=== PATIENT | male | born 1950 | race African-American/Black ===

== ENCOUNTER 2019-02-24 12:58 | Emergency (ER) | payer OTHER ==
[2019-02-24 13:13] VITALS: BP 165/107; PULSE 75; TEMP 97.5; BMI 17.1
--- NOTE | 2019-02-24 13:43 | PDOC ---
History of Present Illness - General Chief Complaint: Chest Pain Stated Complaint: CHEST PAIN Time Seen by Provider: 02/24/19 13:40 History Source: Patient Exam Limitations: No Limitations - History of Present Illness Initial Comments: 02/24/19 13:42 HPI: 68yo M 1/2ppd smoker with PMH HTN, presenting from the 5th floor with non- pleuritic chest pain while visiting his mother. Patient recalls long-time intermittent dull left chest pains, non-exertional, spontaneously relieved without intervention, no aggravating or alleviating factors identified. 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 Has smoked his whole like, 1/2PPD, patient reports that he has tried to quit but with his mother's medical conditions, insurance, etc "It feels like I'm standing in one first trying to put out 50 others" and finds relief with smoking. Denies SOB, cough, fevers, chills, recent illnesses. No recent travel or immobilizations, no leg swelling or pain. Patient is re-directable but perseverates on mother's health problems and other stressors, downplays his symptoms. All: NKDA Meds per chart PMH as above PSH denies SHx: Smokes 1/2PPD most of his life Past History - Travel Traveled outside of the country in the last 30 days: No Close contact w/someone who was outside of country & ill: No - Past Medical History Allergies/Adverse Reactions: Allergies Allergy/AdvReac Type Severity Reaction Status Date / Time No Known Allergies Allergy Verified 02/24/19 13:13 COPD: No - Psycho Social/Smoking Cessation Hx Smoking History: Current every day smoker Number of Cigarettes Smoked Daily: 10 Information on smoking cessation initiated: No Hx Alcohol Use: Yes Drug/Substance Use Hx: No Review of Systems - Review of Systems Able to Perform ROS?: Yes Is the patient limited Yemeni proficient: Yes Constitutional: No: Chills, Diaphoresis, Fever HEENTM: No: Recent change in vision, Nose Congestion, Throat Pain Respiratory: Yes: See HPI, Shortness of Breath. No: Cough, Wheezing Cardiac (ROS): Yes: See HPI, Chest Pain. No: Edema, Irregular Heart Rate, Palpitations, Syncope, Chest Tightness ABD/GI: No: Constipated, Diarrhea, Nausea, Vomiting : No: Burning, Dysuria, Frequency Musculoskeletal: No: Back Pain, Muscle Pain, Muscle Weakness, Neck Pain Integumentary: No: Dryness, Erythema, Pruritus, Rash Neurological: No: Headache, Numbness, Tingling, Weakness Psychiatric: Yes: Stressors, Sleep Pattern Change, Emotional Problems, Mood Swings. No: Frequent Crying, Change in Appetite Hematologic/Lymphatic: No: Anemia, Blood Clots, Easy Bleeding All Other Systems: Reviewed and Negative *Physical Exam - Vital Signs Last Vital Signs Temp Pulse Resp BP Pulse Ox 97.5 F L 75 16 165/107 H 98 02/24/19 13:00 02/24/19 13:00 02/24/19 13:00 02/24/19 13:00 02/24/19 13:00 - Physical Exam 02/24/19 15:02 Vitals reviewed GEN: Well appearing, NAD, comfortable. AAOx3. HEENT: NC/AT, EOMI, PERRLA. No facial asymmetry. Moist mucous membranes. Normal voice. Supple neck w/ FROM. CV: S1/S2, RRR, no m/r/g LUNG: CTAB, no wheezes, crackles, rales, rhonchi. GI: Soft, ndnt, +BS, no guarding, no rebound. No masses. Neg CVAT b/l. EXTREMITIES: 2+ distal pulses. No LE edema. No obvious deformities of all extremities. SKIN: Warm, dry, no rashes appreciated. PSYCH: Sad with normal affect. NEURO: Moving all extremities well. Heart Score/ECG Review - History History: Slightly suspicious - Electrocardiogram EKG: Normal - Age Age: >/= 65 - Risk Factors Risk Factors Heart Score: Yes Hx Hypertension Based on the list above the patient has:: 1-2 risk factors - Troponin Troponin: </= normal limit - Score Heart Score - Total: 3 ED Treatment Course - LABORATORY CBC & Chemistry Diagram: 02/24/19 13:48 02/24/19 13:48 Medical Decision Making - Medical Decision Making 02/24/19 14:17 68 yo M presenting with intermittent chronic chest pain with acute episode occuring while visiting mother on 5th floor. Reassuring for pains similar to prior. HEART Score 3. DDX includes but it not limited to: r/o ACS, depression, URI, PNA, malignancy, PTX, less likely PE. - CBC, CMP, Cardiac Profile - CXR, EKG 02/24/19 14:26 EKbpm, NSR, normal axis, normal intervals, no ischemic changes 02/24/19 14:53 CXR without condolidation, infiltrate, effusions, pneumothorax or bony pathology. Patient requesting to leave AMA to visit his mother upstairs. Patient requested to leave AMA. Patient is determined to be of sound mind and reasoning. The patient fully understands the care they are refusing and the risks associated with leaving before complete medical evaluation as explained by the medical team. The patient has been provided with a discharge summary, return precautions, and the reassurance that the Emergency Department will resume workup if the patient changes their mind. Immediate primary care follow up has been urged. 02/24/19 15:02 02/24/19 16:22 Patient left department before signing the AMA forms Discharge - Discharge Information Problems reviewed: Yes Clinical Impression/Diagnosis: Chest pain Qualifiers: Chest pain type: unspecified Qualified Code(s): R07.9 - Chest pain, unspecified Condition: Stable Disposition: AGAINST MEDICAL ADVICE - Follow up/Referral - Patient Discharge Instructions Patient Printed Discharge Instructions: DI for Atypical Chest Pain Additional Instructions: You are leaving against medical advice and refusing evaluation and treatment of chest pain. It is essential that you follow up with your primary care physician within the next 1-2 days. Please return to the Emergency Department if you change your mind and wish to continue evaluation of your symptoms or if you experience any of the following: - worsening of your symptoms - chest pain - shortness of breath and/or difficulty breathing - seizure - changes in behavior - lightheadedness, and/or dizziness - severe abdominal pain - severe or bloody vomiting - bloody diarrhea - inability to eat or drink - anything that concerns you - Post Discharge Activity
[2019-02-24 14:10] LABS: BASO % 1.3 % (0-2.0); EOS % 5.2 % (0-4.5); HEMATOCRIT 41.1 % (35.4-49); LYMPH % 34.6 % (8-40); MEAN PLT VOLUME 7.9 fl (7.5-11.1); MONO % 9.1 % (3.8-10.2); NEUT % 49.8 % (42.8-82.8); PLATELET COUNT 152 K/MM3 (134-434); RBC 4.11 M/mm3 (4.00-5.60); RDW 13.7 % (11.9-15.9); WHITE BLOOD COUNT 3.5 K/mm3 (4.0-10.0)
[2019-02-24 14:42] LABS: ALBUMIN 4.1 g/dl (3.4-5.0); BILIRUBIN,TOTAL 0.6 mg/dL (0.2-1); BLOOD UREA NITROGEN 18.4 mg/dL (7-18); CALCIUM 9.9 mg/dL (8.5-10.1); CREATININE 1.1 mg/dL (0.55-1.3); POTASSIUM 4.6 mmol/L (3.5-5.1)
--- NOTE | 2019-02-24 15:31 | PDOC ---
Documentation entered by Ashley Main SCRIBE, acting as scribe for Melanie Jacques MD. Melanie Jacques MD: This documentation has been prepared by the Etelvina lopez Brenda, SCRIBE, under my direction and personally reviewed by me in its entirety. I confirm that the documentation accurately reflects all work, treatment, procedures, and medical decision making performed by me. Attending Attestation - Resident Resident Name: [email or web address] - ED Attending Attestation I have performed the following: I have examined & evaluated the patient, The case was reviewed & discussed with the resident, I agree w/resident's findings & plan, Exceptions are as noted - HPI HPI: 02/24/19 14:06 The patient is a 68 year old male with a PMH of HTN and daily cigarette use who presents to the ED for left sided chest pain/discomfort, while seeing his mother , who is admitted upstairs in the hospital. No fevers or chills No shortness of breath No chest wall tenderness No nausea, vomiting Allergies: NKA Social Hx: Current everyday smoker PCP: [facility] 02/24/19 15:29 - Physicial Exam PE: 02/24/19 14:08 GENERAL: (+) Thin The patient is in no acute distress. ENT: Ears normal, nares patent, oropharynx clear without exudates. Moist mucous membranes. NECK: Normal range of motion, supple, no nuchal rigidity LUNGS: Breath sounds equal, clear to auscultation bilaterally. No wheezes, and no crackles. HEART: Regular rate and rhythm, normal S1 and S2 without murmur, rub or gallop. ABDOMEN: Soft, nontender, normoactive bowel sounds. No guarding, no rebound. No masses palpable. EXTREMITIES: Normal range of motion, no edema. NEUROLOGICAL: Cranial nerves II through XII grossly intact. Normal speech. No focal neurological deficits. SKIN: Warm, Dry, normal turgor, no rashes or lesions noted. - Medical Decision Making 02/24/19 15:27 Differential includes cardiac ischemia, pe, asthma exacerbation, pneumonia, pneumothorax, pleural effusion, costochondritis, pericarditis, GERD. Laboratory Tests 02/24/19 02/24/19 02/24/19 13:48 13:48 13:48 Hgb 14.0 Hct 41.1 BUN 18.4 H Creatinine 1.1 Creatine Kinase 87 Troponin I < 0.02 EKG: Twelve-lead EKG was performed and reviewed by me. There is normal sinus rhythm with a normal rate of 69 bpm. The axis is normal. The intervals are normal. There are no ST or T wave abnormalities. Impression: Normal twelve-lead EKG Patient states he is unable to stay in the hospital. He needs to see his mother who is upstairs and her vp digital marketing social media and crm. Patient is leaving the emergency department AGAINST MEDICAL ADVICE I have taken his phone number in order to call him in case his troponin is positive Clinical impression: Chest pain, initial presentation Note: The patient insists on leaving the emergency dept and is signing out against medical advice. The patient understands the risks and complications that may result from the refusal of medical care and admission which includes and permanent disability. The patient has the mental capacity of understanding the risks of refusing care and is capable of making an informed decision. The patient was instructed to return to the emergency department should he change his mind regarding medical care or should his condition worsen. The patient signed the Against Medical Advice form.
--- NOTE | 2019-02-25 12:59 | EKG ---
Test Reason : Blood Pressure : / mmHG Vent. Rate : 069 BPM Atrial Rate : 069 BPM P-R Int : 156 ms QRS Dur : 084 ms QT Int : 402 ms P-R-T Axes : 075 -09 059 degrees QTc Int : 430 ms NORMAL SINUS RHYTHM POSSIBLE LEFT ATRIAL ENLARGEMENT LEFT VENTRICULAR HYPERTROPHY ABNORMAL ECG NO PREVIOUS ECGS AVAILABLE Confirmed by MD Gerardo, All ([id number]) on 02/25/2019 12:58:52 PM Referred By: Confirmed By:All Carrillo MD
== END 2019-02-24 15:40 | disposition left against medical advice (07) ==
LOC: JER 12:58
DX: R07.9 Chest pain, unspecified (principal); I10 Essential (primary) hypertension; F17.210 Nicotine dependence, cigarettes, uncomplicated
CPT/HCPCS: 36415; 71046-TC-FY; 80053; 82550; 84484; 85025; 93005; 93010; 99282-25

== ENCOUNTER 2021-09-07 16:12 | Inpatient (IN) | payer OTHER ==
[2021-09-07 18:37] LABS: BASO % 0.5 % (0-2.0); EOS % 10.5 % (0-4.5); HEMATOCRIT 38.5 % (35.4-49); HEMOGLOBIN 12.9 GM/dL (11.7-16.9); LYMPH % 18.4 % (8-40); MCH 33.9 pg (25.7-33.7); MCHC 33.6 g/dl (32.0-35.9); MEAN CELL VOLUME 100.9 fl (80-96); MEAN PLT VOLUME 8.9 fl (7.5-11.1); MONO % 10.4 % (3.8-10.2); NEUT % 60.2 % (42.8-82.8); PLATELET COUNT 139 10^3/uL (134-434); RBC 3.82 M/mm3 (4.00-5.60); RDW 13.6 % (11.9-15.9); WHITE BLOOD COUNT 5.9 K/mm3 (4.0-10.0)
[2021-09-07] MEDS ORDERED: methylPREDNISolone NA SUCC 125 MG/2 ML VIAL IVPUSH ONE (18:43)
[2021-09-07] MEDS ORDERED: AZITHROMYCIN IVPB 500 MG in DEXTROSE 5%-WATER - 250 ML IVPB ONE (18:43)
[2021-09-07] MEDS ORDERED: methylPREDNISolone NA SUCC 125 MG/2 ML VIAL ONE (18:49)
[2021-09-07] MEDS ORDERED: AZITHROMYCIN IVPB 500 MG/250 ML BAG IVPB ONE (18:50)
[2021-09-07] MEDS ORDERED: ALBUTEROL SO4 2.5/IPRATROPIUM 0.5 INH SOL 3 ML VIAL.NEB. NEB ONE (18:51)
[2021-09-07 18:56] LABS: ALBUMIN 3.6 g/dl (3.4-5.0); BLOOD UREA NITROGEN 21.6 mg/dL (7-18); CALCIUM 9.9 mg/dL (8.5-10.1)
[2021-09-07 18:59] LABS: CREATININE 1.2 mg/dL (0.55-1.3)
[2021-09-07 19:01] LABS: BILIRUBIN,TOTAL 0.5 mg/dL (0.2-1); TOT PROT 6.9 g/dl (6.4-8.2)
[2021-09-07 19:04] LABS: N-TERMINAL BNP 174.5 pg/ml (5-125)
[2021-09-07] MEDS: ALBUTEROL SO4 2.5/IPRATROPIUM 0.5 INH SOL 3 ML VIAL.NEB. NEB SCH ×3 (19:10→20:05)
[2021-09-08] MEDS ORDERED: FUROSEMIDE 40 MG/4 ML INJECTABLE VIAL IVPUSH ONE (00:44)
[2021-09-08] MEDS ORDERED: methylPREDNISolone NA SUCC 40 MG/1 ML VIAL ONE (01:36)
[2021-09-08] MEDS ORDERED: FUROSEMIDE 40 MG/4 ML INJECTABLE VIAL ONE (01:36)
[2021-09-08] MEDS ORDERED: ALBUTEROL SO4 2.5/IPRATROPIUM 0.5 INH SOL 3 ML VIAL.NEB. NEB ONE (01:36)
[2021-09-08] MEDS: methylPREDNISolone NA SUCC 40 MG/1 ML VIAL IVPUSH SCH ×3 (01:48→18:35)
[2021-09-08] MEDS: ALBUTEROL SO4 2.5/IPRATROPIUM 0.5 INH SOL 3 ML VIAL.NEB. NEB SCH ×5 (01:48→20:11)
[2021-09-08 08:30] LABS: BASO % 0.2 % (0-2.0); HEMATOCRIT 39.8 % (35.4-49); HEMOGLOBIN 13.2 GM/dL (11.7-16.9); LYMPH % 12.8 % (8-40); MCH 33.7 pg (25.7-33.7); MCHC 33.1 g/dl (32.0-35.9); MEAN CELL VOLUME 101.8 fl (80-96); MEAN PLT VOLUME 9.2 fl (7.5-11.1); MONO % 1.3 % (3.8-10.2); NEUT % 85.7 % (42.8-82.8); PLATELET COUNT 145 10^3/uL (134-434); RBC 3.91 M/mm3 (4.00-5.60); RDW 13.5 % (11.9-15.9)
[2021-09-08 08:36] LABS: ALBUMIN 3.7 g/dl (3.4-5.0); CALCIUM 9.9 mg/dL (8.5-10.1); MAGNESIUM 1.7 mg/dL (1.8-2.4)
[2021-09-08 08:37] LABS: BLOOD UREA NITROGEN 26.8 mg/dL (7-18)
[2021-09-08 08:39] LABS: PHOSPHOROUS 3.2 mg/dL (2.5-4.9)
[2021-09-08 08:40] LABS: CHOLESTEROL 179 mg/dL (50-200); CREATININE 1.4 mg/dL (0.55-1.3)
[2021-09-08 08:41] LABS: BILIRUBIN,TOTAL 0.5 mg/dL (0.2-1); TOT PROT 7.4 g/dl (6.4-8.2); TRIGLYCERIDES 38 mg/dL (0-150)
[2021-09-08 08:42] LABS: LDL CHOLESTEROL (ONLY SJRH) 72 mg/dL (5-100)
[2021-09-08 08:43] LABS: HDL CHOLESTEROL 106 mg/dL (40-60)
[2021-09-08] MEDS: ENOXAPARIN NA (PORCINE) 40 MG/0.4 ML DISP.SYRIN SQ SCH (09:50)
[2021-09-08] MEDS: AZITHROMYCIN 250 MG TABLET PO SCH (09:50)
[2021-09-08] MEDS: NICOTINE 7 MG/24 HOURS TOPICAL PATCH TD SCH (13:14)
[2021-09-08] MEDS: BUDESONIDE/FORMETEROL FUMARATE 160/4.5 mcg INHALER IH SCH ×2 (13:14→21:46)
[2021-09-09] MEDS: methylPREDNISolone NA SUCC 40 MG/1 ML VIAL IVPUSH SCH ×3 (01:37→18:45)
[2021-09-09] MEDS: ALBUTEROL SO4 2.5/IPRATROPIUM 0.5 INH SOL 3 ML VIAL.NEB. NEB SCH ×4 (07:40→20:05)
[2021-09-09] MEDS: ENOXAPARIN NA (PORCINE) 40 MG/0.4 ML DISP.SYRIN SQ SCH (10:32)
[2021-09-09] MEDS: AZITHROMYCIN 250 MG TABLET PO SCH (10:33)
[2021-09-09] MEDS: BUDESONIDE/FORMETEROL FUMARATE 160/4.5 mcg INHALER IH SCH ×2 (10:33→22:01)
[2021-09-09] MEDS: NICOTINE 7 MG/24 HOURS TOPICAL PATCH TD SCH (10:33)
[2021-09-09 10:47] LABS: BASO % 0.1 % (0-2.0); HEMATOCRIT 37.1 % (35.4-49); HEMOGLOBIN 12.4 GM/dL (11.7-16.9); LYMPH % 6.7 % (8-40); MCH 34.2 pg (25.7-33.7); MCHC 33.6 g/dl (32.0-35.9); MEAN CELL VOLUME 101.9 fl (80-96); MEAN PLT VOLUME 9.3 fl (7.5-11.1); NEUT % 90.2 % (42.8-82.8); PLATELET COUNT 146 10^3/uL (134-434); RBC 3.64 M/mm3 (4.00-5.60); RDW 13.5 % (11.9-15.9); WHITE BLOOD COUNT 8.8 K/mm3 (4.0-10.0)
[2021-09-09 11:20] LABS: CALCIUM 9.9 mg/dL (8.5-10.1)
[2021-09-09 11:21] LABS: ALBUMIN 3.5 g/dl (3.4-5.0); BLOOD UREA NITROGEN 34.8 mg/dL (7-18); MAGNESIUM 1.9 mg/dL (1.8-2.4)
[2021-09-09 11:22] LABS: PHOSPHOROUS 3.9 mg/dL (2.5-4.9)
[2021-09-09 11:23] LABS: TOT PROT 6.6 g/dl (6.4-8.2)
[2021-09-09 11:24] LABS: BILIRUBIN,TOTAL 0.3 mg/dL (0.2-1); CREATININE 1.3 mg/dL (0.55-1.3)
[2021-09-10] MEDS: methylPREDNISolone NA SUCC 40 MG/1 ML VIAL IVPUSH SCH ×3 (01:59→17:28)
[2021-09-10] MEDS: ALBUTEROL SO4 2.5/IPRATROPIUM 0.5 INH SOL 3 ML VIAL.NEB. NEB SCH ×4 (08:00→20:07)
[2021-09-10] MEDS: ENOXAPARIN NA (PORCINE) 40 MG/0.4 ML DISP.SYRIN SQ SCH (09:22)
[2021-09-10] MEDS: AZITHROMYCIN 250 MG TABLET PO SCH (09:22)
[2021-09-10] MEDS: NICOTINE 7 MG/24 HOURS TOPICAL PATCH TD SCH (09:23)
[2021-09-10] MEDS: BUDESONIDE/FORMETEROL FUMARATE 160/4.5 mcg INHALER IH SCH ×2 (09:37→21:50)
[2021-09-11] MEDS: methylPREDNISolone NA SUCC 40 MG/1 ML VIAL IVPUSH SCH ×3 (02:17→17:02)
[2021-09-11] MEDS: ALBUTEROL SO4 2.5/IPRATROPIUM 0.5 INH SOL 3 ML VIAL.NEB. NEB SCH ×4 (08:00→20:39)
[2021-09-11] MEDS: NICOTINE 7 MG/24 HOURS TOPICAL PATCH TD SCH (09:15)
[2021-09-11] MEDS: ENOXAPARIN NA (PORCINE) 40 MG/0.4 ML DISP.SYRIN SQ SCH (09:15)
[2021-09-11] MEDS: AZITHROMYCIN 250 MG TABLET PO SCH (09:15)
[2021-09-11] MEDS: BUDESONIDE/FORMETEROL FUMARATE 160/4.5 mcg INHALER IH SCH ×2 (09:15→21:28)
[2021-09-11] MEDS: FAMOTIDINE 20 MG TABLET PO SCH (13:08)
[2021-09-12] MEDS: methylPREDNISolone NA SUCC 40 MG/1 ML VIAL IVPUSH SCH ×3 (02:08→17:37)
[2021-09-12] MEDS: ALBUTEROL SO4 2.5/IPRATROPIUM 0.5 INH SOL 3 ML VIAL.NEB. NEB SCH ×4 (07:15→20:05)
[2021-09-12] MEDS ORDERED: ALBUTEROL SO4 HFA INHALER IH PRN (08:48)
[2021-09-12] MEDS: NICOTINE 7 MG/24 HOURS TOPICAL PATCH TD SCH (11:13)
[2021-09-12] MEDS: ENOXAPARIN NA (PORCINE) 40 MG/0.4 ML DISP.SYRIN SQ SCH (11:13)
[2021-09-12] MEDS: FAMOTIDINE 20 MG TABLET PO SCH (11:13)
[2021-09-12] MEDS: BUDESONIDE/FORMETEROL FUMARATE 160/4.5 mcg INHALER IH SCH ×2 (11:13→21:04)
[2021-09-12 15:58] VITALS: BMI 15.5
[2021-09-13] MEDS: methylPREDNISolone NA SUCC 40 MG/1 ML VIAL IVPUSH SCH ×3 (02:19→21:41)
[2021-09-13] MEDS: ALBUTEROL SO4 2.5/IPRATROPIUM 0.5 INH SOL 3 ML VIAL.NEB. NEB SCH ×4 (09:16→20:50)
[2021-09-13 09:33] LABS: HEMATOCRIT 36.2 % (35.4-49); HEMOGLOBIN 12.3 GM/dL (11.7-16.9); LYMPH % 7.2 % (8-40); MCH 34.2 pg (25.7-33.7); MEAN CELL VOLUME 100.8 fl (80-96); MEAN PLT VOLUME 8.6 fl (7.5-11.1); MONO % 6.6 % (3.8-10.2); NEUT % 86.2 % (42.8-82.8); PLATELET COUNT 160 10^3/uL (134-434); RBC 3.59 M/mm3 (4.00-5.60); RDW 13.6 % (11.9-15.9); WHITE BLOOD COUNT 6.6 K/mm3 (4.0-10.0)
[2021-09-13] MEDS: ENOXAPARIN NA (PORCINE) 40 MG/0.4 ML DISP.SYRIN SQ SCH (09:43)
[2021-09-13] MEDS: NICOTINE 7 MG/24 HOURS TOPICAL PATCH TD SCH (09:43)
[2021-09-13] MEDS: FAMOTIDINE 20 MG TABLET PO SCH (09:43)
[2021-09-13] MEDS: BUDESONIDE/FORMETEROL FUMARATE 160/4.5 mcg INHALER IH SCH ×2 (09:43→21:40)
[2021-09-13 10:01] LABS: IRON SERUM 76 ug/dL (50-175); TOTAL IRON BINDING CAPACITY 296 ug/dL (250-450)
[2021-09-13 10:11] LABS: BLOOD UREA NITROGEN 37.9 mg/dL (7-18)
[2021-09-13 10:14] LABS: PHOSPHOROUS 3.6 mg/dL (2.5-4.9)
[2021-09-14] MEDS: ALBUTEROL SO4 2.5/IPRATROPIUM 0.5 INH SOL 3 ML VIAL.NEB. NEB SCH ×4 (08:00→19:51)
[2021-09-14 09:52] LABS: BASO % 0.1 % (0-2.0); HEMATOCRIT 38.7 % (35.4-49); LYMPH % 9.7 % (8-40); MCH 33.9 pg (25.7-33.7); MCHC 33.4 g/dl (32.0-35.9); MEAN CELL VOLUME 101.5 fl (80-96); MEAN PLT VOLUME 8.5 fl (7.5-11.1); NEUT % 83.2 % (42.8-82.8); PLATELET COUNT 185 10^3/uL (134-434); RBC 3.82 M/mm3 (4.00-5.60); RDW 13.8 % (11.9-15.9); WHITE BLOOD COUNT 7.6 K/mm3 (4.0-10.0)
[2021-09-14 10:22] LABS: CALCIUM 9.8 mg/dL (8.5-10.1)
[2021-09-14 10:23] LABS: ALBUMIN 3.3 g/dl (3.4-5.0); MAGNESIUM 2.1 mg/dL (1.8-2.4)
[2021-09-14 10:25] LABS: PHOSPHOROUS 3.8 mg/dL (2.5-4.9)
[2021-09-14] MEDS: methylPREDNISolone NA SUCC 40 MG/1 ML VIAL IVPUSH SCH ×2 (10:26→21:57)
[2021-09-14] MEDS: FAMOTIDINE 20 MG TABLET PO SCH (10:26)
[2021-09-14] MEDS: ENOXAPARIN NA (PORCINE) 40 MG/0.4 ML DISP.SYRIN SQ SCH (10:26)
[2021-09-14 10:27] LABS: BILIRUBIN,TOTAL 0.3 mg/dL (0.2-1); TOT PROT 6.4 g/dl (6.4-8.2)
[2021-09-14] MEDS: BUDESONIDE/FORMETEROL FUMARATE 160/4.5 mcg INHALER IH SCH ×2 (10:29→21:58)
[2021-09-14] MEDS: NICOTINE 7 MG/24 HOURS TOPICAL PATCH TD SCH (11:44)
[2021-09-14 21:07] LABS: GLIADIN ANTIBODY IGA 9 units (0-19); GLIADIN ANTIBODY IGG 2 units (0-19); TRANSGLUTAMINASE IGG < 2 U/mL (0-5)
[2021-09-15] MEDS: ALBUTEROL SO4 2.5/IPRATROPIUM 0.5 INH SOL 3 ML VIAL.NEB. NEB SCH ×4 (07:50→20:46)
[2021-09-15 08:07] LABS: CARCINOEMBRYONIC ANTIGEN 2.6 ng/mL (0.0-4.7)
[2021-09-15] MEDS: ENOXAPARIN NA (PORCINE) 40 MG/0.4 ML DISP.SYRIN SQ SCH (09:23)
[2021-09-15] MEDS: methylPREDNISolone NA SUCC 40 MG/1 ML VIAL IVPUSH SCH (09:23)
[2021-09-15] MEDS: FAMOTIDINE 20 MG TABLET PO SCH (09:23)
[2021-09-15] MEDS: BUDESONIDE/FORMETEROL FUMARATE 160/4.5 mcg INHALER IH SCH ×2 (09:24→21:25)
[2021-09-15] MEDS: NICOTINE 7 MG/24 HOURS TOPICAL PATCH TD SCH (11:36)
[2021-09-15 11:53] LABS: BASO % 0.2 % (0-2.0); EOS % 0.1 % (0-4.5); HEMATOCRIT 38.8 % (35.4-49); HEMOGLOBIN 13.1 GM/dL (11.7-16.9); LYMPH % 6.8 % (8-40); MCH 34.2 pg (25.7-33.7); MCHC 33.7 g/dl (32.0-35.9); MEAN CELL VOLUME 101.3 fl (80-96); MEAN PLT VOLUME 8.5 fl (7.5-11.1); MONO % 5.9 % (3.8-10.2); PLATELET COUNT 200 10^3/uL (134-434); RBC 3.83 M/mm3 (4.00-5.60); RDW 13.4 % (11.9-15.9); WHITE BLOOD COUNT 8.4 K/mm3 (4.0-10.0)
[2021-09-15 12:26] LABS: BLOOD UREA NITROGEN 34.7 mg/dL (7-18)
[2021-09-15 12:27] LABS: ALBUMIN 3.7 g/dl (3.4-5.0); CALCIUM 10.2 mg/dL (8.5-10.1); MAGNESIUM 2.2 mg/dL (1.8-2.4)
[2021-09-15 12:30] LABS: CREATININE 0.9 mg/dL (0.55-1.3); PHOSPHOROUS 3.9 mg/dL (2.5-4.9)
[2021-09-15 12:31] LABS: BILIRUBIN,TOTAL 0.6 mg/dL (0.2-1)
[2021-09-15] MEDS ORDERED: SENNOSIDES 8.6MG TABLET (FP) PO PRN (15:20)
[2021-09-15] MEDS: POLYETHYLENE GLYCOL (HEALTHYLAX) 3350 17 GM PACKET PO SCH (15:43)
[2021-09-15] MEDS: DOCUSATE SODIUM 100 MG CAPSULE (FP) PO SCH (21:24)
[2021-09-16] MEDS: ALBUTEROL SO4 2.5/IPRATROPIUM 0.5 INH SOL 3 ML VIAL.NEB. NEB SCH ×4 (08:10→20:03)
[2021-09-16] MEDS: POLYETHYLENE GLYCOL (HEALTHYLAX) 3350 17 GM PACKET PO SCH (09:00)
[2021-09-16] MEDS: FAMOTIDINE 20 MG TABLET PO SCH (12:30)
[2021-09-16] MEDS: predniSONE 20 MG TABLET (UD) PO SCH (12:30)
[2021-09-16] MEDS: NICOTINE 7 MG/24 HOURS TOPICAL PATCH TD SCH (12:32)
[2021-09-16] MEDS: BUDESONIDE/FORMETEROL FUMARATE 160/4.5 mcg INHALER IH SCH ×2 (12:37→21:38)
[2021-09-16] MEDS ORDERED: FLUCONAZOLE 100 MG TABLET (UD) PO ONE (12:54)
[2021-09-16 15:27] LABS: BASO % 0.2 % (0-2.0); EOS % 0.7 % (0-4.5); HEMATOCRIT 39.3 % (35.4-49); HEMOGLOBIN 13.3 GM/dL (11.7-16.9); LYMPH % 22.4 % (8-40); MCHC 33.8 g/dl (32.0-35.9); MEAN CELL VOLUME 100.7 fl (80-96); MEAN PLT VOLUME 8.2 fl (7.5-11.1); MONO % 13.5 % (3.8-10.2); NEUT % 63.2 % (42.8-82.8); PLATELET COUNT 194 10^3/uL (134-434); RDW 13.9 % (11.9-15.9); WHITE BLOOD COUNT 4.8 K/mm3 (4.0-10.0)
[2021-09-16 16:13] LABS: CALCIUM 10.1 mg/dL (8.5-10.1)
[2021-09-16 16:14] LABS: ALBUMIN 3.2 g/dl (3.4-5.0); BLOOD UREA NITROGEN 34.1 mg/dL (7-18); MAGNESIUM 2.2 mg/dL (1.8-2.4)
[2021-09-16 16:17] LABS: PHOSPHOROUS 3.8 mg/dL (2.5-4.9)
[2021-09-16 16:19] LABS: BILIRUBIN,TOTAL 0.6 mg/dL (0.2-1); TOT PROT 6.5 g/dl (6.4-8.2)
[2021-09-16] MEDS: DOCUSATE SODIUM 100 MG CAPSULE (FP) PO SCH (21:40)
[2021-09-17] MEDS: ALBUTEROL SO4 2.5/IPRATROPIUM 0.5 INH SOL 3 ML VIAL.NEB. NEB SCH ×4 (08:23→20:14)
[2021-09-17 10:20] LABS: BASO % 0.3 % (0-2.0); EOS % 0.4 % (0-4.5); HEMATOCRIT 36.5 % (35.4-49); HEMOGLOBIN 12.1 GM/dL (11.7-16.9); LYMPH % 15.8 % (8-40); MCH 33.8 pg (25.7-33.7); MCHC 33.2 g/dl (32.0-35.9); MEAN PLT VOLUME 8.6 fl (7.5-11.1); MONO % 6.5 % (3.8-10.2); PLATELET COUNT 212 10^3/uL (134-434); RBC 3.58 M/mm3 (4.00-5.60); RDW 13.7 % (11.9-15.9); WHITE BLOOD COUNT 8.2 K/mm3 (4.0-10.0)
[2021-09-17 10:55] LABS: BLOOD UREA NITROGEN 41.7 mg/dL (7-18); CALCIUM 9.7 mg/dL (8.5-10.1)
[2021-09-17 10:56] LABS: ALBUMIN 3.2 g/dl (3.4-5.0); MAGNESIUM 2.2 mg/dL (1.8-2.4)
[2021-09-17 10:59] LABS: CREATININE 1.1 mg/dL (0.55-1.3)
[2021-09-17 11:00] LABS: BILIRUBIN,TOTAL 0.4 mg/dL (0.2-1); TOT PROT 6.1 g/dl (6.4-8.2)
[2021-09-17] MEDS: NICOTINE 7 MG/24 HOURS TOPICAL PATCH TD SCH (11:17)
[2021-09-17] MEDS: FLUCONAZOLE 100 MG TABLET (UD) PO SCH (11:17)
[2021-09-17] MEDS: POLYETHYLENE GLYCOL (HEALTHYLAX) 3350 17 GM PACKET PO SCH (11:18)
[2021-09-17] MEDS: FAMOTIDINE 20 MG TABLET PO SCH (11:18)
[2021-09-17] MEDS: predniSONE 20 MG TABLET (UD) PO SCH (11:18)
[2021-09-17] MEDS: ENOXAPARIN NA (PORCINE) 40 MG/0.4 ML DISP.SYRIN SQ SCH (11:18)
[2021-09-17] MEDS: BUDESONIDE/FORMETEROL FUMARATE 160/4.5 mcg INHALER IH SCH ×2 (11:19→21:49)
[2021-09-17 12:04] LABS: HIV INTERPRETATION NEGATIVE (NEGATIVE)
[2021-09-17] MEDS: DOCUSATE SODIUM 100 MG CAPSULE (FP) PO SCH (21:48)
[2021-09-18] MEDS: ALBUTEROL SO4 2.5/IPRATROPIUM 0.5 INH SOL 3 ML VIAL.NEB. NEB SCH ×4 (07:32→19:57)
[2021-09-18] MEDS: FLUCONAZOLE 100 MG TABLET (UD) PO SCH (09:29)
[2021-09-18] MEDS: NICOTINE 7 MG/24 HOURS TOPICAL PATCH TD SCH (09:29)
[2021-09-18] MEDS: predniSONE 20 MG TABLET (UD) PO SCH (09:30)
[2021-09-18] MEDS: POLYETHYLENE GLYCOL (HEALTHYLAX) 3350 17 GM PACKET PO SCH (09:30)
[2021-09-18] MEDS: ENOXAPARIN NA (PORCINE) 40 MG/0.4 ML DISP.SYRIN SQ SCH (09:30)
[2021-09-18] MEDS: FAMOTIDINE 20 MG TABLET PO SCH (09:31)
[2021-09-18] MEDS: BUDESONIDE/FORMETEROL FUMARATE 160/4.5 mcg INHALER IH SCH ×2 (09:31→21:10)
[2021-09-18] MEDS: DOCUSATE SODIUM 100 MG CAPSULE (FP) PO SCH (21:10)
[2021-09-19] MEDS: ALBUTEROL SO4 2.5/IPRATROPIUM 0.5 INH SOL 3 ML VIAL.NEB. NEB SCH ×4 (07:37→20:34)
[2021-09-19 08:55] LABS: BASO % 0.2 % (0-2.0); EOS % 0.4 % (0-4.5); HEMATOCRIT 36.4 % (35.4-49); HEMOGLOBIN 12.2 GM/dL (11.7-16.9); LYMPH % 15.9 % (8-40); MCH 33.9 pg (25.7-33.7); MCHC 33.4 g/dl (32.0-35.9); MEAN CELL VOLUME 101.6 fl (80-96); MONO % 9.3 % (3.8-10.2); NEUT % 74.2 % (42.8-82.8); PLATELET COUNT 225 10^3/uL (134-434); RBC 3.59 M/mm3 (4.00-5.60); RDW 13.7 % (11.9-15.9); WHITE BLOOD COUNT 10.4 K/mm3 (4.0-10.0)
[2021-09-19 09:30] LABS: ALBUMIN 3.5 g/dl (3.4-5.0); BLOOD UREA NITROGEN 35.2 mg/dL (7-18); CALCIUM 10.3 mg/dL (8.5-10.1)
[2021-09-19 09:33] LABS: CREATININE 1.1 mg/dL (0.55-1.3)
[2021-09-19 09:35] LABS: BILIRUBIN,TOTAL 0.3 mg/dL (0.2-1); TOT PROT 6.4 g/dl (6.4-8.2)
[2021-09-19] MEDS: ENOXAPARIN NA (PORCINE) 40 MG/0.4 ML DISP.SYRIN SQ SCH (10:34)
[2021-09-19] MEDS: FLUCONAZOLE 100 MG TABLET (UD) PO SCH (10:34)
[2021-09-19] MEDS: predniSONE 20 MG TABLET (UD) PO SCH (10:34)
[2021-09-19] MEDS: FAMOTIDINE 20 MG TABLET PO SCH (10:34)
[2021-09-19] MEDS: BUDESONIDE/FORMETEROL FUMARATE 160/4.5 mcg INHALER IH SCH ×2 (10:35→21:47)
[2021-09-19] MEDS: NICOTINE 7 MG/24 HOURS TOPICAL PATCH TD SCH (10:35)
[2021-09-19] MEDS: POLYETHYLENE GLYCOL (HEALTHYLAX) 3350 17 GM PACKET PO SCH (10:36)
[2021-09-19] MEDS: DOCUSATE SODIUM 100 MG CAPSULE (FP) PO SCH (21:47)
[2021-09-20] MEDS: ALBUTEROL SO4 2.5/IPRATROPIUM 0.5 INH SOL 3 ML VIAL.NEB. NEB SCH ×4 (08:31→20:23)
[2021-09-20 08:38] LABS: BASO % 0.3 % (0-2.0); EOS % 0.1 % (0-4.5); HEMATOCRIT 35.5 % (35.4-49); LYMPH % 12.3 % (8-40); MCH 34.2 pg (25.7-33.7); MCHC 33.7 g/dl (32.0-35.9); MEAN CELL VOLUME 101.6 fl (80-96); MONO % 8.5 % (3.8-10.2); NEUT % 78.8 % (42.8-82.8); PLATELET COUNT 219 10^3/uL (134-434); RBC 3.49 M/mm3 (4.00-5.60); RDW 13.7 % (11.9-15.9); WHITE BLOOD COUNT 10.3 K/mm3 (4.0-10.0)
[2021-09-20 09:01] LABS: ALBUMIN 3.3 g/dl (3.4-5.0); CALCIUM 10.2 mg/dL (8.5-10.1); MAGNESIUM 2.2 mg/dL (1.8-2.4)
[2021-09-20 09:02] LABS: BLOOD UREA NITROGEN 30.9 mg/dL (7-18)
[2021-09-20 09:04] LABS: PHOSPHOROUS 3.4 mg/dL (2.5-4.9)
[2021-09-20 09:06] LABS: BILIRUBIN,TOTAL 0.6 mg/dL (0.2-1); TOT PROT 6.4 g/dl (6.4-8.2)
[2021-09-20] MEDS: predniSONE 20 MG TABLET (UD) PO SCH (09:32)
[2021-09-20] MEDS: FLUCONAZOLE 100 MG TABLET (UD) PO SCH (09:33)
[2021-09-20] MEDS: ENOXAPARIN NA (PORCINE) 40 MG/0.4 ML DISP.SYRIN SQ SCH (09:33)
[2021-09-20] MEDS: POLYETHYLENE GLYCOL (HEALTHYLAX) 3350 17 GM PACKET PO SCH ×2 (09:33→09:52)
[2021-09-20] MEDS: FAMOTIDINE 20 MG TABLET PO SCH (09:33)
[2021-09-20] MEDS: BUDESONIDE/FORMETEROL FUMARATE 160/4.5 mcg INHALER IH SCH ×2 (09:34→22:04)
[2021-09-20] MEDS: NICOTINE 7 MG/24 HOURS TOPICAL PATCH TD SCH (09:34)
[2021-09-20] MEDS: DOCUSATE SODIUM 100 MG CAPSULE (FP) PO SCH (22:04)
[2021-09-21] MEDS: ALBUTEROL SO4 2.5/IPRATROPIUM 0.5 INH SOL 3 ML VIAL.NEB. NEB SCH ×4 (07:45→20:00)
[2021-09-21] MEDS: predniSONE 20 MG TABLET (UD) PO SCH (09:49)
[2021-09-21] MEDS: ENOXAPARIN NA (PORCINE) 40 MG/0.4 ML DISP.SYRIN SQ SCH (09:49)
[2021-09-21] MEDS: FAMOTIDINE 20 MG TABLET PO SCH (09:49)
[2021-09-21] MEDS: NICOTINE 7 MG/24 HOURS TOPICAL PATCH TD SCH (09:51)
[2021-09-21] MEDS: BUDESONIDE/FORMETEROL FUMARATE 160/4.5 mcg INHALER IH SCH ×2 (09:52→21:46)
[2021-09-21] MEDS: POLYETHYLENE GLYCOL (HEALTHYLAX) 3350 17 GM PACKET PO SCH (10:02)
[2021-09-21] MEDS: FLUCONAZOLE 100 MG TABLET (UD) PO SCH (11:20)
[2021-09-21 13:37] VITALS: RESP 18
[2021-09-21] MEDS: DOCUSATE SODIUM 100 MG CAPSULE (FP) PO SCH (21:50)
[2021-09-22] MEDS: ALBUTEROL SO4 2.5/IPRATROPIUM 0.5 INH SOL 3 ML VIAL.NEB. NEB SCH ×4 (07:39→20:12)
[2021-09-22] MEDS: FAMOTIDINE 20 MG TABLET PO SCH (09:49)
[2021-09-22] MEDS: ENOXAPARIN NA (PORCINE) 40 MG/0.4 ML DISP.SYRIN SQ SCH (09:49)
[2021-09-22] MEDS: predniSONE 20 MG TABLET (UD) PO SCH (09:49)
[2021-09-22] MEDS: FLUCONAZOLE 100 MG TABLET (UD) PO SCH (09:51)
[2021-09-22] MEDS: NICOTINE 7 MG/24 HOURS TOPICAL PATCH TD SCH (09:53)
[2021-09-22] MEDS: POLYETHYLENE GLYCOL (HEALTHYLAX) 3350 17 GM PACKET PO SCH (09:53)
[2021-09-22] MEDS: BUDESONIDE/FORMETEROL FUMARATE 160/4.5 mcg INHALER IH SCH ×2 (09:56→21:45)
[2021-09-22] MEDS: DOCUSATE SODIUM 100 MG CAPSULE (FP) PO SCH (21:45)
[2021-09-23] MEDS: ALBUTEROL SO4 2.5/IPRATROPIUM 0.5 INH SOL 3 ML VIAL.NEB. NEB SCH ×3 (08:43→15:51)
[2021-09-23] MEDS: ENOXAPARIN NA (PORCINE) 40 MG/0.4 ML DISP.SYRIN SQ SCH (10:06)
[2021-09-23] MEDS: FLUCONAZOLE 100 MG TABLET (UD) PO SCH (10:06)
[2021-09-23] MEDS: predniSONE 20 MG TABLET (UD) PO SCH (10:06)
[2021-09-23] MEDS: POLYETHYLENE GLYCOL (HEALTHYLAX) 3350 17 GM PACKET PO SCH (10:06)
[2021-09-23] MEDS: FAMOTIDINE 20 MG TABLET PO SCH (10:06)
[2021-09-23] MEDS: NICOTINE 7 MG/24 HOURS TOPICAL PATCH TD SCH (10:07)
[2021-09-23] MEDS: BUDESONIDE/FORMETEROL FUMARATE 160/4.5 mcg INHALER IH SCH (14:36)
[2021-09-23 15:01] VITALS: BP 143/89; PULSE 90; TEMP 97.6
== END 2021-09-23 17:34 | disposition home or self-care (01) | DRG 190 ==
LOC: JER 16:12 → JERBED 22:14 → J5S 09-08 02:49
PROVIDERS: ADMIT Internal Medicine; ATTEND Internal Medicine
PROC: 0DB68ZX Excision of Stomach, Via Natural or Artificial Opening Endoscopic, Diagnostic (ICD-10-PCS; 2021-09-16)
PROC: 0DB58ZX Excision of Esophagus, Via Natural or Artificial Opening Endoscopic, Diagnostic (ICD-10-PCS; principal; 2021-09-16 13:00)
DX: J44.1 Chronic obstructive pulmonary disease with (acute) exacerbation (principal); E43 Unspecified severe protein-calorie malnutrition; Z68.1 Body mass index [BMI] 19.9 or less, adult; N17.9 Acute kidney failure, unspecified; B37.81 Candidal esophagitis; R64 Cachexia; K22.5 Diverticulum of esophagus, acquired; I10 Essential (primary) hypertension; N40.0 Benign prostatic hyperplasia without lower urinary tract symptoms; I07.1 Rheumatic tricuspid insufficiency; R15.9 Full incontinence of feces; R91.1 Solitary pulmonary nodule; D64.9 Anemia, unspecified; J06.9 Acute upper respiratory infection, unspecified; R13.19 Other dysphagia; K08.9 Disorder of teeth and supporting structures, unspecified; K40.20 Bilateral inguinal hernia, without obstruction or gangrene, not specified as recurrent; F17.200 Nicotine dependence, unspecified, uncomplicated; R93.3 Abnormal findings on diagnostic imaging of other parts of digestive tract; R97.8 Other abnormal tumor markers; Z86.010 Personal history of colon polyps
CPT/HCPCS: 0241U-QW; 36415; 71045-TC-FY; 71250-TC; 74177-TC; 74220-TC-FY; 80048; 80053; 80061; 82378; 82607; 82728; 82746; 82784; 83516; 83540; 83550; 83690; 83735; 83880; 84100; 84153; 84155; 84165; 84436; 84443; 84484; 85025; 85045; 86140; 86301; 86334; 87389; 88305-TC; 93005; 93010; 93306-TC; 94640; 94761; 97116-GP; 97162-GP; 99285-25

== ENCOUNTER 2022-08-16 20:32 | Inpatient (IN) | payer OTHER ==
[2022-08-16] MEDS ORDERED: ALBUTEROL SO4 2.5/IPRATROPIUM 0.5 INH SOL 3 ML VIAL.NEB. NEB ONE (20:46)
[2022-08-16] MEDS ORDERED: MAGNESIUM SULF 50% (8.12 MEQ/2 ML-1 GM VIAL) IVPB ONE (20:52)
[2022-08-16] MEDS ORDERED: MAGNESIUM SULFATE IN WATER 2 GM/50 ML IVPB IVPB ONE (20:53)
[2022-08-16 21:19] LABS: VENOUS BASE EXCESS -3.5 mmol/L (-2-2); VENOUS O2 SATURATION 30.5 % (70-80)
[2022-08-16 21:20] LABS: EOS % 15.1 % (0-4.5); HEMATOCRIT 40.2 % (35.4-49); HEMOGLOBIN 13.3 GM/dL (11.7-16.9); LYMPH % 36.8 % (8-40); MCH 33.5 pg (25.7-33.7); MCHC 33.2 g/dl (32.0-35.9); MONO % 10.7 % (3.8-10.2); NEUT % 35.4 % (42.8-82.8); PLATELET COUNT 186 10^3/uL (134-434); RBC 3.98 M/mm3 (4.00-5.60); RDW 14.5 % (11.9-15.9); WHITE BLOOD COUNT 4.6 K/mm3 (4.0-10.0)
[2022-08-16 21:39] LABS: VENOUS PCO2 70.3 mmHg (38-52); VENOUS PH 7.189 (7.310-7.410)
[2022-08-16 21:43] LABS: CHLORIDE 108 mmol/L (98-107); SODIUM 141 mmol/L (136-145)
[2022-08-16 21:46] LABS: ALBUMIN 3.6 g/dl (3.4-5.0); BLOOD UREA NITROGEN 20.6 mg/dL (7-18); CALCIUM 9.9 mg/dL (8.5-10.1); CO2 30 mmol/L (21-32); GLUCOSE,RANDOM 95 mg/dL (74-106)
[2022-08-16 21:49] LABS: SGPT/ALT 25 U/L (13-61)
[2022-08-16 21:50] LABS: SGOT/AST 54 U/L (15-37); TOT PROT 7.3 g/dl (6.4-8.2)
[2022-08-16 21:51] LABS: ALK PHOS 66 U/L (45-117); BILIRUBIN,TOTAL 0.5 mg/dL (0.2-1)
[2022-08-16 21:53] LABS: N-TERMINAL BNP 177.8 pg/ml (5-125)
[2022-08-16 21:57] LABS: ANION GAP 3 MMOL/L (8-16); POTASSIUM 6.5 mmol/L (3.5-5.1)
[2022-08-16 22:03] LABS: VENOUS BASE EXCESS -1.5 mmol/L (-2-2); VENOUS PCO2 62.7 mmHg (38-52); VENOUS PH 7.25 (7.310-7.410)
[2022-08-16] MEDS ORDERED: AZITHROMYCIN IVPB 500 MG in DEXTROSE 5%-WATER - 250 ML IVPB ONE (23:46)
[2022-08-17] LABS: ARTERIAL BLD GAS O2 SATURATION 99.3 % (95-98); ARTERIAL BLOOD GAS BASE EXCESS -0.7 mmol/L (-2-2); ARTERIAL BLOOD GAS PO2 195.6 mmHg (80-100); ARTERIAL BLOOD GAS pH 7.358 (7.350-7.450)
[2022-08-17 00:01] LABS: ALLENS TEST POSITIVE
[2022-08-17 00:02] LABS: VENT MODE S/T BIPAP; VENT RATE 14
[2022-08-17] MEDS ORDERED: AZITHROMYCIN IVPB 500 MG/250 ML BAG IVPB ONE (00:09)
[2022-08-17 00:46] LABS: POTASSIUM 4.6 mmol/L (3.5-5.1)
[2022-08-17] MEDS ORDERED: methylPREDNISolone NA SUCC 40 MG/1 ML VIAL ONE (01:13)
[2022-08-17] MEDS: methylPREDNISolone NA SUCC 40 MG/1 ML VIAL IVPUSH SCH ×5 (01:18→21:46)
[2022-08-17 02:12] VITALS: BMI 13.7
[2022-08-17] MEDS: ALBUTEROL SO4 2.5/IPRATROPIUM 0.5 INH SOL 3 ML VIAL.NEB. NEB SCH ×2 (07:21→11:27)
[2022-08-17 07:57] LABS: HEMATOCRIT 36.6 % (35.4-49); HEMOGLOBIN 11.9 GM/dL (11.7-16.9); MCH 33.8 pg (25.7-33.7); MCHC 32.6 g/dl (32.0-35.9); MEAN CELL VOLUME 103.6 fl (80-96); MEAN PLT VOLUME 8.8 fl (7.5-11.1); PLATELET COUNT 164 10^3/uL (134-434); RBC 3.54 M/mm3 (4.00-5.60); RDW 13.9 % (11.9-15.9)
[2022-08-17 08:10] LABS: POTASSIUM 5.3 mmol/L (3.5-5.1)
[2022-08-17 08:21] LABS: CREATININE 1.3 mg/dL (0.55-1.3)
[2022-08-17 08:23] LABS: ALBUMIN 3.4 g/dl (3.4-5.0); TOT PROT 6.7 g/dl (6.4-8.2)
[2022-08-17 08:24] LABS: BLOOD UREA NITROGEN 27.4 mg/dL (7-18)
[2022-08-17 08:27] LABS: CALCIUM 10.1 mg/dL (8.5-10.1); MAGNESIUM 1.9 mg/dL (1.8-2.4); PHOSPHOROUS 2.9 mg/dL (2.5-4.9)
[2022-08-17 08:33] LABS: BILIRUBIN,TOTAL 1.1 mg/dL (0.2-1)
[2022-08-17] MEDS: NICOTINE 21 MG/24 HOURS TOPICAL PATCH TD SCH (09:14)
[2022-08-17] MEDS: ENOXAPARIN NA (PORCINE) 40 MG/0.4 ML DISP.SYRIN SQ SCH (09:14)
[2022-08-17] MEDS ORDERED: ALBUTEROL SO4 0.083% IH SOL 2.5 MG/3 ML VIAL.NEB. NEB PRN (12:23)
[2022-08-17] MEDS: FLUTICASONE/UMECLIDIN/VILANTER(100-62.5-25 TRELEGY ELLIPTA) INAHLER IH SCH (12:26)
[2022-08-17] MEDS ORDERED: SODIUM CHLORIDE 1,000 ML IV STA (12:48)
[2022-08-17 15:42] LABS: CALCIUM 9.9 mg/dL (8.5-10.1)
[2022-08-17 15:43] LABS: BLOOD UREA NITROGEN 27.5 mg/dL (7-18)
[2022-08-17 15:47] LABS: CREATININE 1.2 mg/dL (0.55-1.3)
[2022-08-18] MEDS: methylPREDNISolone NA SUCC 40 MG/1 ML VIAL IVPUSH SCH ×4 (03:15→20:45)
[2022-08-18] MEDS: ENOXAPARIN NA (PORCINE) 40 MG/0.4 ML DISP.SYRIN SQ SCH (10:35)
[2022-08-18] MEDS: NICOTINE 21 MG/24 HOURS TOPICAL PATCH TD SCH (10:35)
[2022-08-18] MEDS: ASPIRIN COATED 81 MG TABLET.EC PO SCH (10:35)
[2022-08-18] MEDS: metoPROLOL SUCCINATE 25 MG TAB.SR.24H (FP) PO SCH (10:35)
[2022-08-18] MEDS: FLUTICASONE/UMECLIDIN/VILANTER(100-62.5-25 TRELEGY ELLIPTA) INAHLER IH SCH (10:36)
[2022-08-18] MEDS: SODIUM ZIRCONIUM CYCLOSILICATE (LOKELMA) 5 GM PACKET PO ONE ×2 (14:15→14:26)
[2022-08-19] MEDS: methylPREDNISolone NA SUCC 40 MG/1 ML VIAL IVPUSH SCH ×2 (03:26→09:53)
[2022-08-19 07:31] LABS: HEMATOCRIT 35.6 % (35.4-49); HEMOGLOBIN 11.8 GM/dL (11.7-16.9); MCH 33.9 pg (25.7-33.7); MCHC 33.1 g/dl (32.0-35.9); MEAN CELL VOLUME 102.3 fl (80-96); MEAN PLT VOLUME 8.6 fl (7.5-11.1); PLATELET COUNT 163 10^3/uL (134-434); RBC 3.48 M/mm3 (4.00-5.60); RDW 13.6 % (11.9-15.9); WHITE BLOOD COUNT 8.2 K/mm3 (4.0-10.0)
[2022-08-19 08:36] LABS: ANISOCYTOSIS 0; MACROCYTOSIS 0
[2022-08-19] MEDS: metoPROLOL SUCCINATE 25 MG TAB.SR.24H (FP) PO SCH ×2 (09:50→09:54)
[2022-08-19] MEDS: ASPIRIN COATED 81 MG TABLET.EC PO SCH (09:53)
[2022-08-19] MEDS: ENOXAPARIN NA (PORCINE) 40 MG/0.4 ML DISP.SYRIN SQ SCH (09:53)
[2022-08-19] MEDS: NICOTINE 21 MG/24 HOURS TOPICAL PATCH TD SCH (09:53)
[2022-08-19] MEDS: FLUTICASONE/UMECLIDIN/VILANTER(100-62.5-25 TRELEGY ELLIPTA) INAHLER IH SCH (09:54)
[2022-08-20] MEDS: ASPIRIN COATED 81 MG TABLET.EC PO SCH (09:37)
[2022-08-20] MEDS: FLUTICASONE/UMECLIDIN/VILANTER(100-62.5-25 TRELEGY ELLIPTA) INAHLER IH SCH (09:37)
[2022-08-20] MEDS: NICOTINE 21 MG/24 HOURS TOPICAL PATCH TD SCH (09:37)
[2022-08-20] MEDS: metoPROLOL SUCCINATE 25 MG TAB.SR.24H (FP) PO SCH (09:37)
[2022-08-20] MEDS: ENOXAPARIN NA (PORCINE) 40 MG/0.4 ML DISP.SYRIN SQ SCH (09:37)
[2022-08-20] MEDS ORDERED: predniSONE 20 MG TABLET (UD) PO SCH (10:00)
[2022-08-20 15:09] VITALS: PULSE 75
[2022-08-20 15:19] VITALS: BP 88/63; RESP 18; TEMP 98
== END 2022-08-20 17:08 | disposition home or self-care (01) | DRG 189 ==
LOC: JER 20:32 → JERBED 21:12 → J4W 08-17 01:47
PROVIDERS: ADMIT Internal Medicine; ATTEND Internal Medicine
DX: J96.01 Acute respiratory failure with hypoxia (principal); I21.A1 Myocardial infarction type 2; R64 Cachexia; J44.1 Chronic obstructive pulmonary disease with (acute) exacerbation; E87.29 Other acidosis; Z68.1 Body mass index [BMI] 19.9 or less, adult; J98.11 Atelectasis; E46 Unspecified protein-calorie malnutrition; J96.02 Acute respiratory failure with hypercapnia; I10 Essential (primary) hypertension; J44.9 Chronic obstructive pulmonary disease, unspecified; N40.0 Benign prostatic hyperplasia without lower urinary tract symptoms; E87.5 Hyperkalemia; D72.10 Eosinophilia, unspecified; R91.1 Solitary pulmonary nodule; K22.5 Diverticulum of esophagus, acquired
CPT/HCPCS: 0241U-QW; 36415; 36600; 71045-TC-FY; 71250-TC; 80048; 80053; 82607; 82746; 82803; 83735; 83880; 84100; 84132; 84484; 85025; 85027; 86682; 93005; 93010; 93306-TC; 94010; 94640; 94660; 94761; 99291

== ENCOUNTER 2022-09-18 15:29 | Emergency (ER) | payer OTHER ==
[2022-09-18 16:20] VITALS: TEMP 97.1; BMI 13.7
[2022-09-18 21:17] VITALS: BP 118/72; PULSE 76; RESP 16
== END 2022-09-18 21:18 | disposition home or self-care (01) ==
LOC: JER 15:29
DX: S00.83XA Contusion of other part of head, initial encounter (principal); W01.190A Fall on same level from slipping, tripping and stumbling with subsequent striking against furniture, initial encounter
CPT/HCPCS: 70450-TC; 72125-TC; 93005; 93010; 99284-25